=== PATIENT | female | born 1955 | race Caucasian/White ===

== ENCOUNTER 2020-08-11 07:54 | Outpatient (REF) | payer BC, SELFPAY ==
--- NOTE | 2020-08-11 07:59 | MM_ITS ---
EXAMINATION: MM SCREENING DIGITAL BREAST TOMOSYNTHESIS, BILATERAL CLINICAL INFORMATION: Screening. Asymptomatic. The lifetime risk of breast cancer based on the Tyrer-Cuzick Model is 7.1%. COMPARISON: Mammography: August 05, 2019 and studies dating back to August 27, 2012 TECHNIQUE: Digital breast tomosynthesis is performed in both the craniocaudal and mediolateral oblique views along with computer-aided detection (CAD). Synthesized 2D images are generated from the tomosynthesis. FINDINGS: The breasts are almost entirely fatty (ACR BI-RADS breast composition Category a). There are no significant masses, abnormal calcifications, or other abnormalities. MM/MM tomosynthesis screening BI IMPRESSION: There are no significant changes from prior study. ASSESSMENT: BI-RADS 1: Negative RECOMMENDATION: Routine annual mammography screening. This patient's information was entered into a reminder system with a target due date for their next mammogram.
== END 2020-08-11 07:55 | disposition home or self-care (01) ==
LOC: HO.MAMMO 07:54
PROVIDERS: PCP Family Medicine; Visit Provider Family Medicine
DX: Z12.31 Encounter for screening mammogram for malignant neoplasm of breast (principal)
CPT/HCPCS: 77063; 77067

== ENCOUNTER 2022-07-26 07:54 | Outpatient (REF) | payer BC, SELFPAY ==
--- NOTE | ~2022-07-26 | MM_ITS ---
EXAMINATION: MM SCREENING DIGITAL BREAST TOMOSYNTHESIS, BILATERAL CLINICAL INFORMATION: Screening. Asymptomatic. The lifetime risk of breast cancer based on the Tyrer-Cuzick Model is 9%. COMPARISON: Mammography: 08/11/2020, 08/05/2019, 12/09/2017 TECHNIQUE: Digital breast tomosynthesis is performed in both the craniocaudal and mediolateral oblique views along with computer-aided detection (CAD). Synthesized 2D images are generated from the tomosynthesis. Additional exaggerated left CC and bilateral MLO views are provided. FINDINGS: The breasts are almost entirely fatty (ACR BI-RADS breast composition Category a). Background stromal markings are stable. No developing density or architectural abnormality. There are no significant masses, abnormal calcifications, or other abnormalities. The axilla and skin contours are unremarkable. No significant changes. MM/MM tomosynthesis screening BI IMPRESSION: No mammographic evidence of malignancy. ASSESSMENT: BI-RADS 1: Negative RECOMMENDATION: Routine annual mammography screening. This patient's information was entered into a reminder system with a target due date for their next mammogram.
== END 2022-07-26 07:55 | disposition home or self-care (01) ==
LOC: HO.MAMMO 07:54
PROVIDERS: Visit Provider Family Medicine
DX: Z12.31 Encounter for screening mammogram for malignant neoplasm of breast (principal)
CPT/HCPCS: 77063; 77067

== ENCOUNTER 2023-08-01 08:06 | Outpatient (REF) | payer BC, SELFPAY ==
--- NOTE | ~2023-08-01 | MM_ITS ---
EXAMINATION: MM SCREENING DIGITAL BREAST TOMOSYNTHESIS, BILATERAL CLINICAL INFORMATION: Screening. Asymptomatic. COMPARISON: Mammography: 07/26/2022, 08/11/2020, 08/05/2019, 12/09/2017 TECHNIQUE: Digital breast tomosynthesis is performed in both the craniocaudal and mediolateral oblique views along with computer-aided detection (CAD). Synthesized 2D images are generated from the tomosynthesis. In addition, full-field bilateral MLO 3-D views were also included, as well as exaggerated 3-D left CC view. FINDINGS: The breasts are almost entirely fatty (ACR BI-RADS breast composition Category a). There are no suspicious masses, suspicious grouped calcifications, or areas of architectural distortion in either breast. The parenchymal pattern is stable from prior exams. There are no axillary or skin abnormalities. No significant changes. MM/MM tomosynthesis screening BI IMPRESSION: No mammographic evidence of malignancy. ASSESSMENT: BI-RADS BI-RADS 1 - Negative RECOMMENDATION: Routine annual mammography screening. 1 year F/U This examination should not preclude the clinical evaluation of a suspicious palpable abnormality. This patient's information was entered into a reminder system with a target due date for their next mammogram.
== END 2023-08-01 08:07 | disposition home or self-care (01) ==
LOC: HO.MAMMO 08:06
PROVIDERS: PCP Family Medicine; Visit Provider Family Medicine
DX: Z12.31 Encounter for screening mammogram for malignant neoplasm of breast (principal)
CPT/HCPCS: 77063; 77067

== ENCOUNTER → 2023-08-01 08:15 | Outpatient (BNV) | payer BC, SELFPAY | PROVIDERS: PCP Family Medicine; Visit Provider Radiology Diagnostic Radiology | DX: Z12.31 Encounter for screening mammogram for malignant neoplasm of breast (principal) | CPT/HCPCS: 77063; 77067 ==

== ENCOUNTER 2024-08-27 08:32 | Outpatient (REF) | payer MEDICARE, SELFPAY ==
--- NOTE | ~2024-08-27 | MM_ITS ---
EXAMINATION: MM SCREENING DIGITAL BREAST TOMOSYNTHESIS, BILATERAL CLINICAL INFORMATION: Screening. Asymptomatic. COMPARISON: Mammography: Comparison is made with available priors TECHNIQUE: Digital breast mammography with tomosynthesis is performed in both the craniocaudal and mediolateral oblique views along with computer-aided detection (CAD). FINDINGS: There are scattered areas of fibroglandular density (ACR BI-RADS breast composition Category b). Right: There are no significant masses, abnormal calcifications, or other abnormalities. Left: Asymmetry lower breast posterior depth on MLO view with appearance of probable fat necrosis. No suspicious calcifications or other abnormal findings. MM/MM tomosynthesis screening BI IMPRESSION: Additional imaging is recommended ASSESSMENT: BI-RADS BI-RADS 0 - Incomplete: Needs additional Imaging. RECOMMENDATION: 1. Additional views of the left breast 2. Targeted ultrasound if warranted after review of the additional views. 3. Radiology department staff will contact the patient for additional imaging. Additional Imaging required This examination should not preclude the clinical evaluation of a suspicious palpable abnormality. This patient's information was entered into a reminder system with a target due date for their next mammogram. Electronically signed by: Kelin Morocho DO 09/07/2024 09:11 AM RICHARD
== END 2024-08-27 08:33 | disposition home or self-care (01) ==
LOC: HO.MAMMO 08:32
PROVIDERS: PCP Family Medicine; Visit Provider Family Medicine
DX: Z12.31 Encounter for screening mammogram for malignant neoplasm of breast (principal)
CPT/HCPCS: 77063; 77067

== ENCOUNTER → 2024-08-27 08:45 | Outpatient (BNV) | payer MEDICARE, SELFPAY | PROVIDERS: PCP Family Medicine; Visit Provider Internal Medicine | DX: Z12.31 Encounter for screening mammogram for malignant neoplasm of breast (principal) | CPT/HCPCS: 77063; 77067 ==

== ENCOUNTER 2024-09-21 09:36 | Outpatient (REF) | payer MEDICARE, SELFPAY ==
--- NOTE | ~2024-09-21 | MM_ITS ---
EXAMINATION: MM DIAGNOSTIC DIGITAL BREAST TOMOSYNTHESIS, LEFT Limited left breast ultrasound. CLINICAL INFORMATION: Call back from screening for asymmetry in the lower left breast on MLO view posterior depth. COMPARISON: Mammography: Comparison is made with available prior examinations. TECHNIQUE: Digital breast tomosynthesis is performed in both the craniocaudal and mediolateral oblique views along with computer-aided detection (CAD). Synthesized 2D images are generated from the tomosynthesis. Limited left breast ultrasound. FINDINGS: There are scattered areas of fibroglandular density (ACR BI-RADS breast composition Category b). Asymmetry in the lower left breast on MLO view far posterior depth persist on additional imaging projections and has change from prior mammograms. No suspicious calcifications or other abnormal findings. Targeted color Doppler left breast ultrasound demonstrates a hypoechoic to isoechoic oval solid mass at 4-5 o'clock 15 cm from the nipple measuring 35 x 25 x 27 mm which correlates with the mammographic asymmetry. MM/MM tomosynthesis added views L IMPRESSION: Solid mass measuring up to 35 mm. This area has demonstrated changes on mammogram this year. Recommend histology with ultrasound-guided core needle biopsy at this time. The findings and recommendations were discussed with the patient the procedure will be scheduled. ASSESSMENT: BI-RADS BI-RADS 4 - Suspicious finding RECOMMENDATION: Biopsy recommended Results were provided to the patient at time of visit by the technologist. This patient's information was entered into a reminder system with a target due date for their next mammogram. Electronically signed by: Kelin Morocho DO 09/21/2024 10:41 AM RICHARD
== END 2024-09-21 09:37 | disposition home or self-care (01) ==
LOC: HO.MAMMO 09:36
PROVIDERS: PCP Family Medicine; Visit Provider Family Medicine
DX: N64.89 Other specified disorders of breast (principal); N63.23 Unspecified lump in the left breast, lower outer quadrant
CPT/HCPCS: 76642; 77061; 77065

== ENCOUNTER → 2024-09-21 09:45 | Outpatient (BNV) | payer MEDICARE, SELFPAY | PROVIDERS: PCP Family Medicine; Visit Provider Internal Medicine | DX: N63.23 Unspecified lump in the left breast, lower outer quadrant (principal) | CPT/HCPCS: 76642; 77065; G0279 ==

== ENCOUNTER 2024-10-08 08:48 | Outpatient (REF) | payer MEDICARE, SELFPAY ==
--- NOTE | ~2024-10-08 | MM_ITS ---
ADDENDUM #1 ADDENDUM: Biopsy left breast for 5:00 mass ultrasound guided core needle biopsy. Nodular fat necrosis. Results are benign and concordant. Recommend return to annual screening. Electronically signed by: Kelin Morocho DO 10/19/2024 01:40 PM EST RP ORIGINAL REPORT PROCEDURE: ULTRASOUND-GUIDED LEFT BREAST BIOPSY CLINICAL INFORMATION: Left breast mass 4-5 o'clock 15 cm from the nipple. COMPARISON: Comparison is made with available prior examinations. TECHNIQUE: The details of the procedure, as well as the risks, benefits, and alternatives to the procedure were explained to the patient in detail and all of her questions were answered, after which, written informed consent was obtained. PROCEDURE: Prior to the procedure, sonography revealed a solid mass at 4-5 o'clock 15 cm from the nipple. A time-out was performed, the lesion intended for biopsy was targeted and the skin of the left breast was then prepped and draped in the usual sterile fashion. Using sonographic guidance, sterile technique, and 1% lidocaine without epinephrine for local anesthesia, a total of 5 cores were obtained through the targeted area with a 14-gauge biopsy device. At the completion of tissue sampling, a single [coil metallic clip was deposited at the biopsy site. An appropriate sample was obtained. The postprocedure 2-view direct digital mammogram reveals satisfactory positioning of the biopsy clip. The patient tolerated the procedure well and, after assuring adequate hemostasis, was discharged in good condition after reviewing postbiopsy breast care instructions. Final pathology results are pending. IMPRESSION: 1. Uncomplicated sonographically-guided core biopsy of the left breast. The 2-view direct digital postprocedure mammogram reveals satisfactory positioning of the biopsy clip. 2. Final pathology results are pending. A separate report with final recommendations will be issued once these results are made available. Electronically signed by: Kelin Morocho DO 10/08/2024 10:20 AM EST RP MM/MM tomosynthesis diagnostic LT IMPRESSION: 1. Uncomplicated sonographically-guided core biopsy of the left breast. The 2-view direct digital postprocedure mammogram reveals satisfactory positioning of the biopsy clip. 2. Final pathology results are pending. A separate report with final recommendations will be issued once these results are made available. Electronically signed by: Kelin Morocho DO 10/08/2024 10:20 AM [facility]
[2024-10-08] MEDS: Lidocaine HCl 1 % 20 ML VIAL 9 ML SUBCUT (09:46)
[2024-10-08] MEDS: Sodium Bicarbonate 8.4% 50 MEQ/50 ML VIAL SUBCUT (09:47)
== END 2024-10-08 08:49 | disposition home or self-care (01) ==
LOC: HO.MAMMO 08:48
PROVIDERS: PCP Family Medicine; Visit Provider Family Medicine
DX: N63.23 Unspecified lump in the left breast, lower outer quadrant (principal)
CPT/HCPCS: 19083; 77061; 77065; 88305; A4648; C1894; J2003

== ENCOUNTER → 2024-10-08 09:00 | Outpatient (BNV) | payer MEDICARE, SELFPAY | PROVIDERS: PCP Family Medicine; Visit Provider Internal Medicine | DX: N63.23 Unspecified lump in the left breast, lower outer quadrant (principal) | CPT/HCPCS: 19083; 77065 ==